=== PATIENT | male | born 1980 | race Caucasian/White ===

== ENCOUNTER 2024-10-14 15:40 | Emergency (ER) | payer MEDICAID, OTHER ==
[~2024-10-14] VITALS: Ht 162.6 cm; Wt 73.0 kg
[~2024-10-14 15:40] MED LIST: [UNRECOGNIZED DRUG - CODE] PO
[2024-10-14 15:41] VITALS: TEMP 36.7; O2SAT 95
[2024-10-14] MEDS: FOLIC ACID 1 MG, THIAMINE HCL 100 MG, MVI, ADULT NO.1 10 ML in SODIUM CHLORIDE 0.9% 1,0... IV ONE (17:06)
[2024-10-14 17:28] LABS: BASOPHILS % 0.7 % (0.0-2.0); EOSINOPHILS % 2.2 % (0.0-5.0); HEMATOCRIT. 37.8 % (42.0-52.0); HEMOGLOBIN. 12.6 g/dL (14.0-18.0); LYMPHOCYTES % 29.8 % (20.0-50.0); MEAN PLATELET VOLUME 10.5 fl (7.4-10.4); MONOCYTES % 12.4 % (2.0-8.0); NEUTROPHILS % 54.9 % (40.0-76.0); PLATELET 90 x1000/uL (130-400); RED BLOOD CELL COUNT 3.92 mill/uL (4.7-6.1); RED CELL DISTRIBUTION WIDTH 19.1 % (11.6-14.6)
[2024-10-14 17:39] LABS: CREATININE 0.8 mg/dL (0.6-1.3)
[2024-10-14 17:40] LABS: ETHANOL BLOOD 268 mg/dL (<10); UREA NITROGEN BLOOD 10 mg/dL (9-23)
[2024-10-14 22:23] VITALS: BP 126/83; PULSE 88; RESP 12; O2SAT 100
== END 2024-10-14 22:26 | disposition home or self-care (01) ==
LOC: ER 15:40
DX: F10.129 Alcohol abuse with intoxication, unspecified (principal); Z79.899 Other long term (current) drug therapy; Y90.9 Presence of alcohol in blood, level not specified
CPT/HCPCS: 80048; 80320; 85025; 36415; 70450; 96365; 99285; J3490 ×2; J3411; J7030; Z7610; G0480

== ENCOUNTER 2024-11-17 18:06 | Emergency (ER) | payer OTHER ==
[~2024-11-17] VITALS: Ht 172.7 cm; Wt 82.0 kg
[2024-11-17 18:18] VITALS: O2SAT 97
[2024-11-17 19:22] LABS: BASOPHILS % 0.3 % (0.0-2.0); EOSINOPHILS % 2.8 % (0.0-5.0); HEMATOCRIT. 38.1 % (42.0-52.0); HEMOGLOBIN. 13.0 g/dL (14.0-18.0); LYMPHOCYTES % 31.7 % (20.0-50.0); MEAN PLATELET VOLUME 10.7 fl (7.4-10.4); MONOCYTES % 8.1 % (2.0-8.0); NEUTROPHILS % 57.1 % (40.0-76.0); PLATELET 88 x1000/uL (130-400); RED BLOOD CELL COUNT 4.07 mill/uL (4.7-6.1); RED CELL DISTRIBUTION WIDTH 16.3 % (11.6-14.6)
[2024-11-17 19:43] LABS: ETHANOL BLOOD 300 mg/dL (<10); UREA NITROGEN BLOOD 10 mg/dL (9-23)
[2024-11-17 19:44] LABS: ASPARTATE AMINOTRANSFERASE 130 IU/L (<34)
[2024-11-17 19:45] LABS: BILIRUBIN DIRECT 0.3 mg/dL (<=3.0); BILIRUBIN TOTAL 0.7 mg/dL (0.1-1.0); PROTEIN TOTAL 6.8 g/dL (6.0-8.3)
[2024-11-17 19:50] LABS: CREATININE 1.3 mg/dL (0.6-1.3)
[2024-11-17 21:20] VITALS: BP 105/65; PULSE 97; RESP 16; TEMP 36.8; O2SAT 95
== END 2024-11-17 21:21 | disposition home or self-care (01) ==
LOC: ER 18:06
DX: F10.129 Alcohol abuse with intoxication, unspecified (principal); E11.9 Type 2 diabetes mellitus without complications; I10 Essential (primary) hypertension; Y90.8 Blood alcohol level of 240 mg/100 ml or more
CPT/HCPCS: 36415; 80048; 80076; 80320; 85025; 99283; G0480

== ENCOUNTER 2025-03-03 18:48 | Emergency (ER) | payer MEDICAID, OTHER ==
[~2025-03-03] VITALS: Ht 167.6 cm; Wt 82.0 kg
[2025-03-03 18:55] VITALS: O2SAT 98
[2025-03-04 00:44] VITALS: BP 109/64; PULSE 61; RESP 16; TEMP 36.6; O2SAT 99
== END 2025-03-04 00:55 | disposition home or self-care (01) ==
LOC: ER 18:48
DX: F10.229 Alcohol dependence with intoxication, unspecified (principal); E11.9 Type 2 diabetes mellitus without complications; I10 Essential (primary) hypertension; Y90.9 Presence of alcohol in blood, level not specified
CPT/HCPCS: 99283

== ENCOUNTER 2025-03-04 20:13 | Emergency (ER) | payer MEDICAID ==
[~2025-03-04] VITALS: Ht 172.7 cm; Wt 100.0 kg
[2025-03-04 20:28] VITALS: O2SAT 96
[2025-03-04 21:11] LABS: BASOPHILS % 1.0 % (0.0-2.0); EOSINOPHILS % 1.7 % (0.0-5.0); HEMATOCRIT. 43.1 % (42.0-52.0); HEMOGLOBIN. 13.8 g/dL (14.0-18.0); LYMPHOCYTES % 33.3 % (20.0-50.0); MONOCYTES % 5.1 % (2.0-8.0); NEUTROPHILS % 58.9 % (40.0-76.0); RED BLOOD CELL COUNT 4.40 mill/uL (4.7-6.1); RED CELL DISTRIBUTION WIDTH 15.0 % (11.6-14.6)
[2025-03-04 21:29] LABS: CREATININE 0.8 mg/dL (0.6-1.3); UREA NITROGEN BLOOD 5 mg/dL (9-23)
[2025-03-04 21:40] LABS: ETHANOL BLOOD 391 mg/dL (<10)
[2025-03-04 21:46] LABS: MEAN PLATELET VOLUME 12.1 fl (7.4-10.4); PLATELET 145 x1000/uL (130-400)
[2025-03-04] MEDS: SODIUM CHLORIDE 0.9% 1,000 ML IV ONE (21:52)
[2025-03-04 22:25] VITALS: BP 136/88; PULSE 60; RESP 18; TEMP 36.8; O2SAT 100
== END 2025-03-04 22:52 | disposition home or self-care (01) ==
LOC: ER 20:13
DX: S00.31XA Abrasion of nose, initial encounter (principal); E11.9 Type 2 diabetes mellitus without complications; I10 Essential (primary) hypertension; X58.XXXA Exposure to other specified factors, initial encounter; Y93.89 Activity, other specified; Y92.89 Other specified places as the place of occurrence of the external cause; Y99.8 Other external cause status
CPT/HCPCS: 80048; 80320; 85025; 36415; 70450; 70486; 99284; J7030; G0480

== ENCOUNTER 2025-03-29 16:00 | Emergency (ER) | payer MEDICAID ==
[~2025-03-29] VITALS: Ht 167.6 cm; Wt 80.7 kg
[2025-03-29 16:02] VITALS: O2SAT 99
[2025-03-29 19:00] LABS: BASOPHILS % 0.6 % (0.0-2.0); EOSINOPHILS % 0.9 % (0.0-5.0); HEMATOCRIT. 40.0 % (42.0-52.0); HEMOGLOBIN. 13.4 g/dL (14.0-18.0); LYMPHOCYTES % 38.4 % (20.0-50.0); MEAN PLATELET VOLUME 11.6 fl (7.4-10.4); MONOCYTES % 6.0 % (2.0-8.0); NEUTROPHILS % 54.1 % (40.0-76.0); PLATELET 129 x1000/uL (130-400); RED BLOOD CELL COUNT 4.32 mill/uL (4.7-6.1); RED CELL DISTRIBUTION WIDTH 14.7 % (11.6-14.6)
[2025-03-29 19:28] VITALS: TEMP 36.5
[2025-03-29 19:33] LABS: CREATININE 0.8 mg/dL (0.6-1.3); UREA NITROGEN BLOOD < 5 mg/dL (9-23)
[2025-03-29 19:34] LABS: ETHANOL BLOOD 300 mg/dL (<10); PROTEIN TOTAL 6.8 g/dL (6.0-8.3)
[2025-03-29 19:35] LABS: ASPARTATE AMINOTRANSFERASE 89 IU/L (<34); BILIRUBIN DIRECT 0.3 mg/dL (<=3.0); BILIRUBIN TOTAL 0.9 mg/dL (0.1-1.0)
[2025-03-29 22:35] VITALS: BP 98/68; PULSE 71; RESP 20; O2SAT 95
== END 2025-03-29 22:38 | disposition home or self-care (01) ==
LOC: ER 16:00
DX: F10.129 Alcohol abuse with intoxication, unspecified (principal); Y90.9 Presence of alcohol in blood, level not specified
CPT/HCPCS: 36415; 80048; 80076; 80320; 85025; 99284; A4606; G0480